=== PATIENT | female | born 1955 | race African-American/Black ===

== ENCOUNTER 2021-08-19 12:20 | Emergency (ER) | payer MEDICARE, MEDICAID ==
[~2021-08-19] VITALS: Ht 165.1 cm; Wt 80.0 kg
[2021-08-19] MEDS ORDERED: KETOROLAC 60MG/2ML VIAL IM ONE (15:15)
[2021-08-19 15:21] VITALS: BP 167/73
[2021-08-19] MEDS ORDERED: IBUP-2030 MT (15:32)
== END 2021-08-19 15:38 | disposition home or self-care (01) ==
LOC: ER 12:20
DX: M79.10 Myalgia, unspecified site (principal); G40.909 Epilepsy, unspecified, not intractable, without status epilepticus; I10 Essential (primary) hypertension; E78.00 Pure hypercholesterolemia, unspecified; F79 Unspecified intellectual disabilities; Z88.5 Allergy status to narcotic agent
CPT/HCPCS: 96372; 99283; J1885

== ENCOUNTER 2022-07-31 14:26 | Emergency (ER) | payer MEDICARE, MEDICAID ==
[~2022-07-31] VITALS: Ht 162.6 cm; Wt 80.0 kg
[~2022-07-31 14:26] MED LIST: IBUP-2030 MT
[2022-07-31] MEDS ORDERED: SODIUM CHLORIDE 0.9% 500 ML IV ONE (15:30)
[2022-07-31 17:33] LABS: BASOPHILS % 0.6 % (0.0-2.0); HEMATOCRIT. 42.1 % (36.0-48.0); HEMOGLOBIN. 13.9 g/dL (12.0-16.0); LYMPHOCYTES % 36.7 % (20.0-50.0); MEAN CORPUSCULAR HEMOGLOBIN 30.6 pg (28.0-32.0); MEAN CORPUSCULAR VOLUME 92.4 fL (81.0-99.0); MEAN PLATELET VOLUME 7.2 fl (7.4-10.4); MONOCYTES % 9.7 % (2.0-8.0); PLATELET 264 x1000/uL (130-400); RED BLOOD CELL COUNT 4.55 mill/uL (4.2-5.4); RED CELL DISTRIBUTION WIDTH 13.8 % (11.6-14.6)
[2022-07-31 17:38] LABS: CHLORIDE 103 mEq/L (98-107)
[2022-07-31 18:55] VITALS: BP 205/90
[2022-07-31 21:36] LABS: CLARITY URINE CLEAR (CLEAR); COLOR URINE YELLOW (YELLOW); KETONES URINE NEGATIVE (NEGATIVE); LEUKOCYTE ESTERASE URINE TRACE (NEGATIVE); NITRITE URINE NEGATIVE (NEGATIVE); OCCULT BLOOD URINE NEGATIVE (NEGATIVE); PH URINE 7.5 (4.5-8.0); PROTEIN URINE NEGATIVE (NEGATIVE); SPECIFIC GRAVITY URINE 1.005 (1.005-1.030); UROBILINOGEN URINE 0.2 E.U./dL (0.2-1.0)
== END 2022-07-31 19:27 | disposition home or self-care (01) ==
LOC: ER 14:26
DX: R55 Syncope and collapse (principal); I10 Essential (primary) hypertension; E78.00 Pure hypercholesterolemia, unspecified; G40.909 Epilepsy, unspecified, not intractable, without status epilepticus; Z88.5 Allergy status to narcotic agent
CPT/HCPCS: 36415; 71045; 80053; 81003; 83690; 84484; 85025; 93005; 96360; 99285; J7030

== ENCOUNTER 2022-11-01 11:08 | Inpatient (IN) | payer MEDICARE, MEDICAID ==
[~2022-11-01] VITALS: Ht 157.5 cm; Wt 64.0 kg
[2022-11-01 11:58] LABS: BASOPHILS % 0.5 % (0.0-2.0); EOSINOPHILS % 0.1 % (0.0-5.0); HEMATOCRIT. 36.6 % (36.0-48.0); HEMOGLOBIN. 12.7 g/dL (12.0-16.0); LYMPHOCYTES % 15.9 % (20.0-50.0); MEAN CORPUSCULAR HEMOGLOBIN 31.4 pg (28.0-32.0); MEAN CORPUSCULAR VOLUME 90.8 fL (81.0-99.0); MONOCYTES % 7.7 % (2.0-8.0); NEUTROPHILS % 75.8 % (40.0-76.0); PLATELET 298 x1000/uL (130-400); RED BLOOD CELL COUNT 4.03 mill/uL (4.2-5.4); RED CELL DISTRIBUTION WIDTH 14.6 % (11.6-14.6)
[2022-11-01 12:08] LABS: CHLORIDE 93 mEq/L (98-107)
[2022-11-01] MEDS ORDERED: NITROGLYCERIN 0.4MG TABLET SL SL PRN (12:45)
[2022-11-01] MEDS ORDERED: ASPIRIN 81MG TABLET PO ONE (12:45)
[2022-11-01] MEDS ORDERED: ENOXAPARIN 60MG/0.6ML SYR SUBCUT ONE (13:30)
[2022-11-01] MEDS ORDERED: ATOR-2 PO (19:20)
[2022-11-01] MEDS ORDERED: PHEN97.22 PO (19:20)
[2022-11-01] MEDS ORDERED: CARB200T6 PO (19:20)
[2022-11-01] MEDS ORDERED: IBUP-2028 PO (19:20)
[2022-11-01] MEDS ORDERED: LISI20TA31 PO (19:20)
[2022-11-01] MEDS ORDERED: MECL-217 PO (19:20)
[2022-11-01] MEDS ORDERED: AMLO5TAB88 PO (19:21)
[2022-11-01 20:00] VITALS: BP 117/61
[2022-11-01] MEDS ORDERED: DIPHENHYDRAMINE 50MG/ML VIAL IV PRN (20:00)
[2022-11-01] MEDS ORDERED: ACETAMINOPHEN 325MG TABLET PO PRN (20:00)
[2022-11-01] MEDS ORDERED: ONDANSETRON HCL 4MG/2ML INJ IV PRN (20:00)
[2022-11-01] MEDS ORDERED: CLONIDINE 0.1MG TABLET PO PRN (20:00)
[2022-11-01] MEDS ORDERED: GUAIFENESIN 200MG/10ML SUGAR FREE UDC PO PRN (20:00)
[2022-11-01] MEDS: ATORVASTATIN CALCIUM 40MG TABLET PO SCH (21:04)
[2022-11-01] MEDS: LISINOPRIL 10MG TABLET PO SCH (21:05)
[2022-11-01] MEDS: CARBAMAZEPINE 200MG TABLET PO SCH (21:05)
[2022-11-01] MEDS: SODIUM CHLORIDE 0.9% INJ 3ML FLUSH IVF SCH (21:05)
[2022-11-02] VITALS: BP 105/55
[2022-11-02 04:00] VITALS: BP 105/49
[2022-11-02] MEDS: SODIUM CHLORIDE 0.9% INJ 3ML FLUSH IVF SCH ×3 (05:38→21:14)
[2022-11-02 08:00] VITALS: BP 108/48
[2022-11-02] MEDS: LISINOPRIL 10MG TABLET PO SCH (08:37)
[2022-11-02] MEDS: CARBAMAZEPINE 200MG TABLET PO SCH ×2 (08:46→21:07)
[2022-11-02 12:00] VITALS: BP 113/56
[2022-11-02] MEDS: NITROGLYCERIN OINT 1GM/INCH UDPKT TD SCH ×2 (12:44→17:47)
[2022-11-02 13:05] LABS: *AMPHETAMINES SCREEN URINE NEGATIVE (NEGATIVE); *BARBITURATES SCREEN URINE PRESUMTIVE POSITIVE (NEGATIVE); *BENZODIAZEPINES SCREEN URINE NEGATIVE (NEGATIVE); *COCAINE SCREEN URINE NEGATIVE (NEGATIVE); CANNABINOID URINE SCREEN NEGATIVE (NEGATIVE); METHADONE URINE SCREEN NEGATIVE (NEGATIVE); OPIATES URINE SCREEN NEGATIVE (NEGATIVE); PHENCYCLIDINE URINE SCREEN NEGATIVE (NEGATIVE)
[2022-11-02] MEDS ORDERED: IOHEXOL-350 100 ML BOTTLE ONE (15:46)
[2022-11-02 16:00] VITALS: BP 130/60
[2022-11-02 20:00] VITALS: BP 119/66
[2022-11-02] MEDS: ATORVASTATIN CALCIUM 40MG TABLET PO SCH (21:07)
[2022-11-02] MEDS: LISINOPRIL 5MG TABLET PO SCH (21:10)
[2022-11-02] MEDS: METOPROLOL TARTRATE 25MG TABLET PO SCH (21:10)
[2022-11-03] VITALS: BP 101/48
[2022-11-03 04:00] VITALS: BP 99/50
[2022-11-03] MEDS: NITROGLYCERIN OINT 1GM/INCH UDPKT TD SCH ×4 (05:10→18:09)
[2022-11-03] MEDS: SODIUM CHLORIDE 0.9% INJ 3ML FLUSH IVF SCH ×3 (05:10→21:18)
[2022-11-03 08:00] VITALS: BP 101/47
[2022-11-03] MEDS: METOPROLOL TARTRATE 25MG TABLET PO SCH ×2 (09:00→20:44)
[2022-11-03] MEDS: LISINOPRIL 5MG TABLET PO SCH (09:00)
[2022-11-03] MEDS: CARBAMAZEPINE 200MG TABLET PO SCH ×2 (09:36→21:17)
[2022-11-03] MEDS: ACETAMINOPHEN 325MG TABLET PO PRN ×2 (09:43→21:52)
[2022-11-03] MEDS ORDERED: ASPIRIN 325MG EC TABLET PO NR (11:45)
[2022-11-03 12:00] VITALS: BP 123/59
[2022-11-03] MEDS ORDERED: ENOXAPARIN 60MG/0.6ML SYR SUBCUT SCH (12:00)
[2022-11-03] MEDS ORDERED: POTASSIUM CHLORIDE 20MEQ TABLET SR PO NR (14:30)
[2022-11-03 15:44] LABS: BASOPHILS % 0.7 % (0.0-2.0); HEMOGLOBIN. 11.8 g/dL (12.0-16.0); LYMPHOCYTES % 20.3 % (20.0-50.0); MEAN CORPUSCULAR HEMOGLOBIN 31.8 pg (28.0-32.0); MEAN CORPUSCULAR VOLUME 91.9 fL (81.0-99.0); MEAN PLATELET VOLUME 6.4 fl (7.4-10.4); MONOCYTES % 8.6 % (2.0-8.0); NEUTROPHILS % 70.4 % (40.0-76.0); PLATELET 311 x1000/uL (130-400); RED CELL DISTRIBUTION WIDTH 14.9 % (11.6-14.6)
[2022-11-03 16:00] VITALS: BP 101/73
[2022-11-03 16:11] LABS: CHLORIDE 96 mEq/L (98-107)
[2022-11-03 20:00] VITALS: BP 103/65
[2022-11-03] MEDS: LISINOPRIL 2.5MG TABLET PO SCH (20:45)
[2022-11-03] MEDS: ATORVASTATIN CALCIUM 40MG TABLET PO SCH (21:17)
[2022-11-04] VITALS (7 sets, daily range): BP systolic 105–136; BP diastolic 51–78
[2022-11-04] MEDS: NITROGLYCERIN OINT 1GM/INCH UDPKT TD SCH ×4 (05:24→18:05)
[2022-11-04] MEDS: SODIUM CHLORIDE 0.45% 1,000 ML IV SCH ×2 (05:30→23:10)
[2022-11-04] MEDS: SODIUM CHLORIDE 0.9% INJ 3ML FLUSH IVF SCH ×3 (05:30→22:50)
[2022-11-04 05:53] LABS: BASOPHILS % 0.6 % (0.0-2.0); HEMATOCRIT. 32.1 % (36.0-48.0); HEMOGLOBIN. 11.1 g/dL (12.0-16.0); LYMPHOCYTES % 33.7 % (20.0-50.0); MEAN CORPUSCULAR HEMOGLOBIN 31.5 pg (28.0-32.0); MEAN CORPUSCULAR VOLUME 91.1 fL (81.0-99.0); MEAN PLATELET VOLUME 6.1 fl (7.4-10.4); MONOCYTES % 13.5 % (2.0-8.0); NEUTROPHILS % 52.2 % (40.0-76.0); PLATELET 296 x1000/uL (130-400); RED BLOOD CELL COUNT 3.53 mill/uL (4.2-5.4); RED CELL DISTRIBUTION WIDTH 14.5 % (11.6-14.6)
[2022-11-04 06:15] LABS: PROTHROMBIN TIME 10.9 sec (9.6-11.0)
[2022-11-04 06:45] LABS: CHLORIDE 99 mEq/L (98-107); HDL CHOLESTEROL 66 mg/dL (40-59); LDL CHOLESTEROL 88 mg/dL (5-100)
[2022-11-04] MEDS ORDERED: ASPIRIN 81MG TABLET PO SCH (09:00)
[2022-11-04] MEDS: CARBAMAZEPINE 200MG TABLET PO SCH ×2 (09:00→22:46)
[2022-11-04] MEDS: LISINOPRIL 2.5MG TABLET PO SCH ×2 (09:00→22:49)
[2022-11-04] MEDS: METOPROLOL TARTRATE 25MG TABLET PO SCH ×2 (09:00→22:48)
[2022-11-04] MEDS ORDERED: IODIXANOL 320MG/ML 100 ML BOTTLE IV ONE (09:10)
[2022-11-04] MEDS ORDERED: LIDOCAINE HCL/PF 2% 20MG/ML 5 ML/VIAL ONE (09:10)
[2022-11-04] MEDS ORDERED: HEPARIN 1000 UNITS/ML 10ML ONE (09:10)
[2022-11-04] MEDS ORDERED: MIDAZOLAM HCL 2 MG/2 ML VIAL ONE (09:11)
[2022-11-04] MEDS ORDERED: FENTANYL CITRATE/PF 50MCG/ML 2ML VIAL ONE (09:11)
[2022-11-04] MEDS ORDERED: NITROGLYCERIN 0.4MG TABLET SL SL ONE (09:42)
[2022-11-04] MEDS ORDERED: ASPIRIN/SOD BICARB/CITRIC ACID 324MG TAB EFF ONE (09:47)
[2022-11-04] MEDS ORDERED: CLOPIDOGREL 75MG TABLET ONE (10:40)
[2022-11-04] MEDS ORDERED: MORPHINE SULFATE 2 MG/ML CPJ (NOT FOR IM USE) IV PRN (10:45)
[2022-11-04] MEDS ORDERED: SODIUM CHLORIDE 0.45% 1,000 ML IV ONE (10:45)
[2022-11-04] MEDS ORDERED: ATROPINE SULFATE 1MG/10ML SYR IV PRN (10:45)
[2022-11-04] MEDS ORDERED: CLOPIDOGREL 75MG TABLET PO NR (10:45)
[2022-11-04] MEDS ORDERED: ACETAMINOPHEN 325MG TABLET PO PRN (10:45)
[2022-11-04] MEDS ORDERED: NALOXONE HCL 0.4MG/ML VIAL IV PRN (15:00)
[2022-11-04] MEDS: ACETAMINOPHEN 325MG TABLET PO PRN (22:43)
[2022-11-04] MEDS: ATORVASTATIN CALCIUM 40MG TABLET PO SCH (22:45)
[2022-11-05] MEDS: NITROGLYCERIN OINT 1GM/INCH UDPKT TD SCH ×3 (00:13→13:10)
[2022-11-05 04:25] VITALS: BP 133/67
[2022-11-05] MEDS: SODIUM CHLORIDE 0.9% INJ 3ML FLUSH IVF SCH (06:20)
[2022-11-05 06:36] LABS: BASOPHILS % 0.4 % (0.0-2.0); HEMATOCRIT. 29.6 % (36.0-48.0); HEMOGLOBIN. 10.5 g/dL (12.0-16.0); LYMPHOCYTES % 18.9 % (20.0-50.0); MEAN CORPUSCULAR HEMOGLOBIN 32.2 pg (28.0-32.0); MEAN PLATELET VOLUME 6.3 fl (7.4-10.4); MONOCYTES % 10.1 % (2.0-8.0); NEUTROPHILS % 70.6 % (40.0-76.0); PLATELET 302 x1000/uL (130-400); RED BLOOD CELL COUNT 3.26 mill/uL (4.2-5.4); RED CELL DISTRIBUTION WIDTH 14.6 % (11.6-14.6)
[2022-11-05 06:59] LABS: CHLORIDE 100 mEq/L (98-107)
[2022-11-05 08:00] VITALS: BP 142/69
[2022-11-05] MEDS ORDERED: ASPIRIN 81MG TABLET PO SCH (09:00)
[2022-11-05] MEDS ORDERED: CLOPIDOGREL 75MG TABLET PO SCH (09:00)
[2022-11-05] MEDS: CARBAMAZEPINE 200MG TABLET PO SCH (09:14)
[2022-11-05] MEDS: LISINOPRIL 2.5MG TABLET PO SCH (09:14)
[2022-11-05] MEDS: METOPROLOL TARTRATE 25MG TABLET PO SCH (09:14)
[2022-11-05 11:19] VITALS: BP 125/66
[2022-11-05 12:00] VITALS: BP 128/66
== END 2022-11-05 15:45 | disposition home or self-care (01) | DRG 174 ==
LOC: ER 11:26 → MICUSO 16:21 → 7WST 19:43 → 3WST 11-04 14:03
PROVIDERS: ADMIT Internal Medicine; ATTEND Internal Medicine
PROC: 027034Z Dilation of Coronary Artery, One Artery with Drug-eluting Intraluminal Device, Percutaneous Approach (ICD-10-PCS; principal; 2022-11-04)
PROC: 4A023N7 Measurement of Cardiac Sampling and Pressure, Left Heart, Percutaneous Approach (ICD-10-PCS; 2022-11-04)
PROC: 02F03ZZ Fragmentation in Coronary Artery, One Artery, Percutaneous Approach (ICD-10-PCS; 2022-11-04)
PROC: B211YZZ Fluoroscopy of Multiple Coronary Arteries using Other Contrast (ICD-10-PCS; 2022-11-04)
PROC: B215YZZ Fluoroscopy of Left Heart using Other Contrast (ICD-10-PCS; 2022-11-04)
DX: I21.4 Non-ST elevation (NSTEMI) myocardial infarction (principal); E87.1 Hypo-osmolality and hyponatremia; I42.9 Cardiomyopathy, unspecified; I25.10 Atherosclerotic heart disease of native coronary artery without angina pectoris; G40.909 Epilepsy, unspecified, not intractable, without status epilepticus; Z20.822 Contact with and (suspected) exposure to COVID-19; I10 Essential (primary) hypertension; E78.00 Pure hypercholesterolemia, unspecified; E78.5 Hyperlipidemia, unspecified; I35.8 Other nonrheumatic aortic valve disorders; Z86.73 Personal history of transient ischemic attack (TIA), and cerebral infarction without residual deficits; Z79.899 Other long term (current) drug therapy; Z79.02 Long term (current) use of antithrombotics/antiplatelets
CPT/HCPCS: 36415; 71045; 71275; 80048; 80053; 80061; 80305; 83735; 83880; 84443; 84484; 85025; 85347; 85379; 87426; 92928; 93005; 93306; 93458; 93970; 99291; C1725; C1769; C1874; C1887; C1893; J1644; J1650; J2250; J3010; J3490; Q9967; C1761